=== PATIENT | male | born 1995 | race Caucasian/White ===

== ENCOUNTER 2018-06-09 13:20 | Emergency (ER) | payer BC, MEDICAID ==
[~2018-06-09] VITALS: Ht 170.2 cm; Wt 84.0 kg
[~2018-06-09 13:20] MED LIST: DICY10CA88 PO; ZOF4T PO
[2018-06-09 14:09] VITALS: BP 115/66
== END 2018-06-09 16:50 | disposition home or self-care (01) ==
LOC: ER 13:21
DX: S86.911A Strain of unspecified muscle(s) and tendon(s) at lower leg level, right leg, initial encounter (principal); Z79.899 Other long term (current) drug therapy; X58.XXXA Exposure to other specified factors, initial encounter; Y93.89 Activity, other specified; Y92.89 Other specified places as the place of occurrence of the external cause; Y99.8 Other external cause status
CPT/HCPCS: 99281

== ENCOUNTER 2018-10-14 12:10 | Emergency (ER) | payer MEDICAID ==
[~2018-10-14] VITALS: Ht 170.2 cm; Wt 81.8 kg
[2018-10-14 12:17] VITALS: BP 113/77
[2018-10-14] MEDS ORDERED: AMOX-580 PO (12:48)
== END 2018-10-14 13:10 | disposition home or self-care (01) ==
LOC: ER 12:11
DX: H66.91 Otitis media, unspecified, right ear (principal); Z79.899 Other long term (current) drug therapy
CPT/HCPCS: 99283

== ENCOUNTER 2019-10-08 11:12 | Emergency (ER) | payer MEDICAID, OTHER ==
[~2019-10-08] VITALS: Ht 170.2 cm; Wt 84.1 kg
[2019-10-08 11:20] VITALS: BP 122/82
== END 2019-10-08 12:48 | disposition left against medical advice (07) ==
LOC: ER 11:13
DX: R06.00 Dyspnea, unspecified (principal); Z53.21 Procedure and treatment not carried out due to patient leaving prior to being seen by health care provider
CPT/HCPCS: 93005

== ENCOUNTER 2020-04-24 09:58 | Emergency (ER) | payer OTHER ==
[~2020-04-24] VITALS: Ht 170.2 cm; Wt 90.9 kg
[2020-04-24 10:45] VITALS: BP 119/84
== END 2020-04-24 10:59 | disposition home or self-care (01) ==
LOC: ER 09:59
DX: J06.9 Acute upper respiratory infection, unspecified (principal); B34.9 Viral infection, unspecified; R05 Cough; R09.89 Other specified symptoms and signs involving the circulatory and respiratory systems; R11.10 Vomiting, unspecified; H92.01 Otalgia, right ear; Z20.828 Contact with and (suspected) exposure to other viral communicable diseases; F17.200 Nicotine dependence, unspecified, uncomplicated; Z72.89 Other problems related to lifestyle; Z79.899 Other long term (current) drug therapy
CPT/HCPCS: 36415; 87635; 99283

== ENCOUNTER 2021-09-27 22:16 | Emergency (ER) | payer OTHER ==
[~2021-09-27] VITALS: Ht 170.2 cm; Wt 90.9 kg
[2021-09-27] MEDS ORDERED: IBUP-1986 PO (23:13)
[2021-09-27] MEDS ORDERED: AMOX500C2 PO (23:13)
[2021-09-27] MEDS ORDERED: amoxicillin 250mg capsule PO ONE (23:20)
[2021-09-27] MEDS ORDERED: ibuprofen tablet 400 MG TABLET PO ONE (23:20)
[2021-09-27 23:25] VITALS: BP 126/89
== END 2021-09-27 23:27 | disposition home or self-care (01) ==
LOC: ER 22:17
DX: K08.89 Other specified disorders of teeth and supporting structures (principal); Z79.899 Other long term (current) drug therapy
CPT/HCPCS: 99283

== ENCOUNTER 2022-09-12 19:55 | Emergency (ER) | payer MEDICAID ==
[~2022-09-12] VITALS: Ht 172.7 cm; Wt 100.0 kg
[~2022-09-12 19:55] MED LIST changes: +IBUP-1986 PO
[2022-09-12 20:09] VITALS: BP 155/100
--- NOTE | 2022-09-12 20:41 | NUR ---
Pt in [facility]. [employer] 2 weeks ago Pt had intercourse w/ his girlfriend. Pt reports there wasn't friction at the time, but sides of penis are very tender, w/ open areas around shaft. Pt reports there was dysuria aprox 1 week ago. Pt educated to POC. Pt in agreement. Pending MD orders, juvenal and ANTONIA.
[2022-09-12] MEDS ORDERED: CefTRIAXone 500MG IM Kit w/LIDOcaine IM ONE (21:00)
[2022-09-12] MEDS ORDERED: penicillin G benzathine 1.2 million unit/2ml syringe IM ONE (21:00)
[2022-09-12] MEDS ORDERED: PENICILLIN G BENZATHINE 2,400,000 UNIT/4 ML SYRINGE IM ONE (21:15)
[2022-09-12] MEDS ORDERED: DOXY100C76 PO (21:24)
[2022-09-12 21:55] LABS: CLARITY,URINE CLEAR (Clear); COLOR,URINE YELLOW (Yellow); GLUCOSE, URINE NEGATIVE (Neg); KETONES,URINE NEGATIVE (Neg); LEUKOCYTE ESTERASE ,URINE NEGATIVE (Neg); NITRITES, URINE NEGATIVE (Neg); OCCULT BLOOD,URINE TRACE-INTACT (Neg); PROTEIN,URINE NEGATIVE (Neg); UROBILINOGEN,URINE 0.2 E.U/dL (0.2-1.0)
[2022-09-12 21:56] LABS: UA COLLECTION TYPE STRAIGHT CATH
[2022-09-12 22:02] LABS: BACTERIA,URINE NONE SEEN /HPF (Neg); RBC,URINE 0-2 /HPF (0-2); SQUAMOUS EPITHELIAL CELL,UR NONE SEEN /LPF (FEW); WBC,URINE 0-4 /HPF (0-4)
[2022-09-12 22:03] LABS: HYALINE CASTS 0-3 /LPF (NEGATIVE)
== END 2022-09-12 21:55 | disposition home or self-care (01) ==
LOC: ER 19:56
DX: R10.30 Lower abdominal pain, unspecified (principal); R30.0 Dysuria; Z79.899 Other long term (current) drug therapy
CPT/HCPCS: 36415; 81001; 86592; 87491; 87591; 96372; 99284; J0561; J0696

== ENCOUNTER 2023-11-28 20:56 | Emergency (ER) | payer MEDICAID, OTHER ==
[~2023-11-28] VITALS: Ht 170.2 cm; Wt 86.4 kg
[2023-11-28 21:11] VITALS: BP 111/71; PULSE 88; RESP 16; TEMP 99.1; O2SAT 97
== END 2023-11-29 01:55 | disposition left against medical advice (07) ==
LOC: ER 20:56
DX: S61.211A Laceration without foreign body of left index finger without damage to nail, initial encounter (principal); Z53.21 Procedure and treatment not carried out due to patient leaving prior to being seen by health care provider; W45.8XXA Other foreign body or object entering through skin, initial encounter; Y93.89 Activity, other specified; Y92.89 Other specified places as the place of occurrence of the external cause; Y99.8 Other external cause status

== ENCOUNTER 2024-12-31 15:05 | Emergency (ER) | payer MEDICAID, OTHER ==
[~2024-12-31] VITALS: Ht 172.7 cm; Wt 85.6 kg
[2024-12-31 15:07] VITALS: BP 137/93; PULSE 102; RESP 20; O2SAT 99
[2024-12-31] MEDS: LIDOcaine 1% 30ml preserv. free vial IJ STA (15:38)
--- NOTE | 2024-12-31 15:49 | RADIOLOGY REPORT ---
CLINICAL INDICATION: Finger Pain TECHNIQUE: 3 radiographic views of the right 5th digit were obtained. Comparison: None FINDINGS/IMPRESSION: There is no evidence of acute fracture or dislocation. The visualized joint space is well maintained. The alignment is anatomical. There is no radiopaque foreign body.
--- NOTE | 2024-12-31 16:41 | Physician Documentation ---
History of Present Illness ~ Chief Complaint: Finger pain Stated Complaint: FINGER PAIN Time Seen by MD: 15:15 Primary Medical Doctor: Dave OBRIEN Patient is seen today with complaints of having smashed his right small finger distal phalanx tuft with a trailer hitch just prior to arrival patient complains of pain and a 1 cm laceration to the tuft of his right small finger distal phalanx.. Patient denies any fevers or chills and has no other concern or complaint at this time. Tetanus within 5 years: No Medication Reconciliation Allergies: Coded Allergies: No Known Allergies (Unverified , 12/31/24) Scheduled Dicyclomine Hcl* (Bentyl*), 10 MG PO Q6H Ibuprofen (Ibuprofen), 1 TAB PO Q8H Ondansetron ODT* (Zofran ODT*), 4 MG PO Q6H Past Medical History Past Medical History: *ENT* Past Surgical History: no surgical history Alcohol Use: Occasionally Drug Use: none Lives with: Family Lives In: Home Occupation: student Review of Systems Constitutional: Denies: chills, fever, weakness Eyes: Denies: pain, blurred vision ENT: Denies: ear pain, nose pain, throat pain, mouth pain Respiratory: Denies: cough, shortness of breath Cardiovascular: Denies: chest pain, palpitations Gastrointestinal: Denies: abdominal pain, nausea, vomiting Genitourinary: Denies: burning, dysuria Male Genitalia: Denies: penile discharge, testicular pain Neurological: Denies: headache, dizziness Musculoskeletal: Denies: pain, swelling Integumentary: Denies: rash, lesions Allergic/Immunologic: Denies: hives, itching Hematologic/Lymphatic: Denies: no symptoms reported Psychiatric: Denies: depression, anxiety Physical Exam Vital Signs: Temperature: 97.1, Source: Temporal, Heart Rate: 102, Respiratory Rate: 20, BP: 137/93, Pulse Oximetry: 99, Weight: 85.600 Oxygen Flow Rate: 0 Physical Exam General: Awake and Alert, no acute distress. HEENT: Conjunctiva pink, Sclera clear, Mucus Membranes moist. Neck: Supple without masses and tenderness. Resp: Unlabored. Lungs clear to auscultation bilaterally. Heart: Regular Rate and rhythm, normal S1 and S2 without murmur, rub or gallop. Musculoskeletal: Patient on exam does have subcu fat extruding from 1 cm laceration to the tuft of his right small finger distal phalanx. Patient is neurovascularly intact distally. Motor function intact distally. Patient has decreased range of motion right small finger due to pain. Patient does have active range of motion and active flexion of the right small finger. Extremities: No cyanosis,clubbing or edema. Skin: Warm and Dry. Procedures Laceration Repair : Procedure Note Procedure note: 4 cc of 1% lidocaine without epinephrine was used to achieve digital block of right small finger. Patient tolerated well. Wound was irrigated with copious amounts of normal saline and iodine and scrubbed clean. Three simple sutures using 5-0 Ethilon used to achieve closure. Wound and laceration repair bandaged with nonadherent dressing. Progress Results/Orders Results/Orders Completed Orders - ANGELIQUE CUMMINGS Lidocaine 1% 30ml Vial (Xylocaine 1% Via (12/31/24 15:27) Vital Signs 12/31/24 15:07 Temp 97.1 Pulse 102 Resp 20 B/P (MAP) 137/93 Pulse Ox 99 O2 Flow Rate 0 EKG/XRAY/CT/US/VASC/MRI Bone/Soft Tissue X-Ray (Ext.) : Additional Comment X-ray of the right small finger interpreted by myself today shows no sign of acute fracture, no dislocation, no osteolytic or blastic lesions, bones in anatomic alignment. DIAGNOSTIC RADIOLOGY Patient: DAMIENLIZ Evangelina Medical Record: [id number] [facility] : 1995, Age: 29 Sex: Male Location: ER Patient Status: REG ER Service Date/Time: 12/31/24 1525 Ordering Physician: LIZ KNIGHT MD Exam: FINGER(S) CLINICAL INDICATION: Finger Pain TECHNIQUE: 3 radiographic views of the right 5th digit were obtained. Comparison: None FINDINGS/IMPRESSION: There is no evidence of acute fracture or dislocation. The visualized joint space is well maintained. The alignment is anatomical. There is no radiopaque foreign body. Electronically Signed by:SABRINA SU DO Date & Time: 12/31/241546 Dictated by: SABRINA SU DO Dictation date and time: 12/31/241546 Primary Care Provider: NO PRIMARY CARE PROVIDER cc: LIZ KNIGHT MD ~ Medical Decision Making Findings Patient is seen today with complaints of having smashed his right small finger distal phalanx tuft with a trailer hitch just prior to arrival patient complains of pain and a 1 cm laceration to the tuft of his right small finger distal phalanx.. Patient denies any fevers or chills and has no other concern or complaint at this time. Patient did have three simple sutures placed in laceration of right small finger. Patient tolerated well. Patient will follow up in 7-10 days for suture removal. Return to ED with any worsening, concerning or changing symptoms. Departure Disposition: 01 HOME / SELF CARE / HOMELESS Impression: Primary Impression: Laceration Condition: Improved Discharge Instructions: Laceration Care, Adult, [id number] Additional Instructions: Patient did have three simple sutures placed in laceration of right small finger. Patient tolerated well. Patient will follow up in 7-10 days for suture removal. Return to ED with any worsening, concerning or changing symptoms. Referrals: NO PRIMARY CARE PROVIDER (PCP) Signature Scribe Signature: No scribe Attestation: No scribe ANGELIQUE CUMMINGS PAC Dec 31, 2024 16:41
[2024-12-31] MEDS: TETanus/Pertussis (Acell)/Diphther VAC/PF (Tdap-Adult) 0.5ml syringe IMVAC ONE (17:00)
[2024-12-31 17:10] VITALS: TEMP 97.1
== END 2024-12-31 17:13 | disposition home or self-care (01) ==
LOC: ER 15:06
DX: S61.216A Laceration without foreign body of right little finger without damage to nail, initial encounter (principal); Z79.899 Other long term (current) drug therapy; Z72.89 Other problems related to lifestyle; W22.8XXA Striking against or struck by other objects, initial encounter; Y93.89 Activity, other specified; Y92.89 Other specified places as the place of occurrence of the external cause; Y99.8 Other external cause status
CPT/HCPCS: 12001; 73140; 90471; 90715; 99283; J7030; A6258; A6449

== ENCOUNTER 2025-01-07 10:48 | Emergency (ER) | payer MEDICAID ==
[~2025-01-07] VITALS: Ht 172.7 cm; Wt 86.6 kg
[2025-01-07 10:51] VITALS: BP 107/66; PULSE 86; RESP 15; TEMP 97.9; O2SAT 99
--- NOTE | 2025-01-07 11:16 | Physician Documentation ---
History of Present Illness ~ Chief Complaint: Suture Removal Stated Complaint: STITCH REMOVAL Time Seen by MD: 11:06 Primary Medical Doctor: Dave Avitia [facility] 71-year-old male presents to the ED to have his sutures removed. Last week he injured his index finger left in a trailer hitch and required three sutures.[email or web address] Any increased pain or swelling Tetanus Within 5 Years: No Medication Reconciliation Allergies: Coded Allergies: No Known Allergies (Unverified , 12/31/24) Scheduled Dicyclomine Hcl* (Bentyl*), 10 MG PO Q6H Ibuprofen (Ibuprofen), 1 TAB PO Q8H Ondansetron ODT* (Zofran ODT*), 4 MG PO Q6H Past Medical History Past Medical History: *ENT* Past Surgical History: no surgical history Alcohol Use: Occasionally Drug Use: none Lives with: Family Lives In: Home Occupation: student Review of Systems All Other Systems at this time: Reviewed and Negative ROS As stated above in the HPI, otherwise all systems are reviewed and negative. Physical Exam Vital Signs: Temperature: 97.9, Heart Rate: 86, Respiratory Rate: 15, BP: 107/66, Pulse Oximetry: 99, Weight: 86.600 Oxygen Flow Rate: 0 Physical Exam General: Alert, no apparent distress. Extremities: Normal range of motion, no deformity. He has sutures in place in the left index finger distal aspect no signs of erythema or drainage Skin: Normal color, warm and dry. No edema, no ecchymosis. Progress Results/Orders Results/Orders Vital Signs 01/07/25 10:51 Temp 97.9 Pulse 86 Resp 15 B/P (MAP) 107/66 Pulse Ox 99 O2 Flow Rate 0 Medical Decision Making Findings Sutures removed without incident by a ED nursing staff. Patient tolerated procedure well Differential Dx:Considerations: Include: Cellulitis, Suture removal, Wound dehiscence, Other Departure Disposition: 01 HOME / SELF CARE / HOMELESS Impression: Primary Impression: Laceration Condition: Stable Discharge Instructions: Suture Removal, Care After Additional Instructions: Keep the area clean and dry as your wound heals follow up with the urgent care or the ED for worsening symptoms Referrals: NO PRIMARY CARE PROVIDER (PCP) Signature Scribe Signature: h Attestation: Scribed for Los Kaiser Hand Bunch Maker by Los Owen NP . 01/07/25 16:55 LOS KAISER NP Jan 07, 2025 11:16
== END 2025-01-07 11:33 | disposition home or self-care (01) ==
LOC: ER 10:49
DX: S61.211D Laceration without foreign body of left index finger without damage to nail, subsequent encounter (principal); X58.XXXD Exposure to other specified factors, subsequent encounter
CPT/HCPCS: 99281

== ENCOUNTER 2025-01-09 10:37 | Emergency (ER) | payer MEDICAID ==
[~2025-01-09] VITALS: Ht 172.7 cm; Wt 83.8 kg
[2025-01-09 10:44] VITALS: BP 102/72; PULSE 83; RESP 16; TEMP 98.5; O2SAT 97
--- NOTE | 2025-01-09 11:09 | Physician Documentation ---
History of Present Illness ~ Chief Complaint: Wound Re-Check Stated Complaint: RE CHECK Time Seen by MD: 11:03 Primary Medical Doctor: Dave Avitia [facility] 29-year-old male who presents to the emergency department for re-evaluation of a small laceration to his left pinky sustained two weeks ago. Patient reports that the sutures are removed on Tuesday without complication. Presents today with concern for a small area that appears to still be open it would like to have it evaluated. Patient denies fevers, redness or swelling. Tetanus within 5 years?: No Medication Reconciliation Allergies: Coded Allergies: No Known Allergies (Unverified , 01/09/25) Scheduled Dicyclomine Hcl* (Bentyl*), 10 MG PO Q6H Ibuprofen (Ibuprofen), 1 TAB PO Q8H Ondansetron ODT* (Zofran ODT*), 4 MG PO Q6H Past Medical History Past Medical History: *ENT* Past Surgical History: no surgical history Alcohol Use: Occasionally Drug Use: none Lives with: Family Lives In: Home Occupation: student Review of Systems ROS As stated above in the HPI, otherwise all systems are reviewed and negative. Physical Exam Vital Signs: Temperature: 98.5, Heart Rate: 83, Respiratory Rate: 16, BP: 102/72, Pulse Oximetry: 97, Weight: 83.800 Oxygen Flow Rate: 0 Physical Exam VITALS: Reviewed and as above. GENERAL: Alert, no apparent distress. HEENT: Normocephalic, atraumatic, PERRL, EOMI, dry mucosa, no erythema RESPIRATORY: Lungs clear, normal breath sounds, no respiratory distress. CHEST: No accessory muscle use, no retractions CV: Regular rate, rhythm, no edema, no murmur, No: JVD GI: Soft, non-tender, bowels sounds present, no rebound, guarding, or rigidity BACK: No CVA tenderness, or swelling MUSCULOSKELETAL No deformities, no edema SKIN: Warm and dry, no rash, small laceration to left fifth digit, post sutures, no redness or swelling NEURO: Oriented x4, No motor or sensory deficit PSYCH: Normal mood and affect, no agitation Progress Results/Orders Results/Orders Vital Signs 01/09/25 10:44 Temp 98.5 Pulse 83 Resp 16 B/P (MAP) 102/72 Pulse Ox 97 O2 Flow Rate 0 Medical Decision Making Findings He is prepared for evaluation of laceration sustained approximately 2 weeks ago post suture removal on Tuesday. Currently no indication or concern for infection. There is a small area opening to the lateral edge of the laceration. He is asked to have it re-evaluated we had applied 1 Steri-Strips to the end wrapped the wound provided the patient with education and instructions for follow up. Follow up with primary care provider or return to the emergency department if any further concerns. Departure Disposition: HOME / SELF CARE / HOMELESS Impression: Primary Impression: Wound Condition: Stable Additional Instructions: Please keep the small area of opening to the laceration clean and covered when a wound. Return to your primary care provider for follow up. Return to the emergency department if you develop any fevers or symptoms consistent with infection i.e. redness or swelling to the localized area. I will not ibuprofen as needed for discomfort. Referrals: NO PRIMARY CARE PROVIDER (PCP) Education Educated: Patient Educated regarding: treatment, need for follow up Signature Scribe Signature: . Attestation: Scribed for Deloris Rizvi by RAND Lee . 01/09/25 11:10 DELORIS RIZVI Jan 09, 2025 11:09
== END 2025-01-09 11:20 | disposition home or self-care (01) ==
LOC: ER 10:38
DX: S61.217D Laceration without foreign body of left little finger without damage to nail, subsequent encounter (principal); X58.XXXD Exposure to other specified factors, subsequent encounter
CPT/HCPCS: 99281